=== PATIENT | male | born 1955 | race Caucasian/White ===

== ENCOUNTER 2018-03-14 08:57 | Emergency (ER) | payer BC ==
--- NOTE | 2018-03-14 10:15 | UC ---
Skin Complaint HPI - HPI Summary HPI Summary: patient with CC of tick bite on right side of his neck--he believes the Tick was on for less than 24 hours. small amount of (less than dime size) erythema at bite site--PCP called him in [place] [facility] - History of Current Complaint Chief Complaint: UCSkin Time Seen by Provider: 03/14/18 10:10 Stated Complaint: TICK BITE Hx Obtained From: Patient Onset/Duration: Sudden Onset, Lasting Days Skin Exposure Onset/Duration: Days Ago - 2 Timing: Constant Pain Intensity: 2 Pain Scale Used: 0-10 Numeric Location: Discrete Character: Redness Aggravating Factor(s): Nothing Associated Signs & Symptoms: Positive: Negative Related History: Possible Reaction to: Insect - Allergy/Home Medications Allergies/Adverse Reactions: Allergies Allergy/AdvReac Type Severity Reaction Status Date / Time No Known Allergies Allergy Verified 03/14/18 09:12 Home Medications: Home Medications Brimonidine/Timolol OPTH(NF) [Combigan OPHTH (NF)] 1 03/14/18 [History] Cyclobenzaprine TAB* [Flexeril 10 MG TAB*] 10 mg PO DAILY 03/14/18 [History Confirmed 03/14/18] Lisinopril [Lisinopril] 10 mg PO DAILY 03/14/18 [History Confirmed 03/14/18] Review of Systems Constitutional: Negative Skin: Other - less than dime size erythema at bite size on right side of neck Eyes: Negative ENT: Negative Respiratory: Negative Cardiovascular: Negative Gastrointestinal: Negative Genitourinary: Negative Motor: Negative Neurovascular: Negative Musculoskeletal: Negative Neurological: Negative Psychological: Negative Is Patient Immunocompromised?: No All Other Systems Reviewed And Are Negative: Yes PMH/Surg Hx/FS Hx/Imm Hx Previously Healthy: No Cardiovascular History: Hypertension - Surgical History Surgical History: Yes Surgery Procedure, Year, and Place: kidney left removed and spleen - Family History Known Family History: Positive: None - Social History Occupation: Employed Full-time Lives: With Family Alcohol Use: Daily Substance Use Type: None Smoking Status (MU): Never Smoked Tobacco Physical Exam Triage Information Reviewed: Yes Appearance: Well-Appearing, No Pain Distress, Well-Nourished Vital Signs: Initial Vital Signs Temp 97.8 F 03/14/18 09:06 Pulse 78 03/14/18 09:06 Resp 18 03/14/18 09:06 BP 136/84 03/14/18 09:06 Pulse Ox 100 03/14/18 09:06 Vital Signs Reviewed: Yes Eye Exam: Normal Eyes: Positive: Conjunctiva Clear ENT Exam: Normal ENT: Positive: Normal ENT inspection, Hearing grossly normal, Pharynx normal. Negative: Nasal congestion, Trismus, Muffled voice, Hoarse voice Dental Exam: Normal Neck exam: Normal Neck: Positive: Supple, Nontender Respiratory Exam: Normal Respiratory: Positive: Chest non-tender, No respiratory distress, No accessory muscle use Cardiovascular Exam: Normal Cardiovascular: Positive: RRR, Pulses Normal, Brisk Capillary Refill Musculoskeletal Exam: Normal Musculoskeletal: Positive: Strength Intact, ROM Intact, No Edema Neurological Exam: Normal Neurological: Positive: Alert, Muscle Tone Normal Psychological Exam: Normal Skin Exam: Other Skin: Positive: Other - less than dime size erythema on right side of neck at site of tick bite Course/Dx - Course Course Of Treatment: soap and water wash, tick and Lyme education provided to patient patient is planning to take Doxycycline RX by PCP - Diagnoses Provider Diagnoses: Tick bite right side of neck Discharge - Sign-Out/Discharge Documenting (check all that apply): Discharge/Admit/Transfer - Discharge Plan Condition: Stable Disposition: HOME Patient Education Materials: Tick Bite (ED) Referrals: Catalino Lorenz MD [Primary Care Provider] - If Needed - Billing Disposition and Condition Condition: STABLE Disposition: Home
== END 2018-03-14 10:20 | disposition home or self-care (01) ==
LOC: UCEAST 08:57
DX: S10.96XA Insect bite of unspecified part of neck, initial encounter (principal); W57.XXXA Bitten or stung by nonvenomous insect and other nonvenomous arthropods, initial encounter; Y93.9 Activity, unspecified; Y92.9 Unspecified place or not applicable; I10 Essential (primary) hypertension; Z90.5 Acquired absence of kidney; Z90.81 Acquired absence of spleen
CPT/HCPCS: 99201; G0463

== ENCOUNTER 2018-07-03 08:15 | Emergency (ER) | payer BC ==
[2018-07-03 08:23] VITALS: BP 146/99
--- NOTE | 2018-07-03 08:34 | UC ---
Eye Complaint HPI - HPI Summary HPI Summary: This patient is a 62 year old M presenting to [facility] with a chief complaint of a stye in the L upper eye lid since 2 weeks ago. The CC is described as erythematous. The patient rates the pain 4/10 in severity. Symptoms aggravated by nothing. Symptoms alleviated by nothing (uses a warm compress to no relief). The patient does not report any other sx. - History of Current Complaint Chief Complaint: UCEye Stated Complaint: EYE COMPLAINT Time Seen by Provider: 07/03/18 08:26 Hx Obtained From: Patient Onset/Duration: Sudden Onset, Lasting Weeks - 2 weeks ago, Still Present Timing: Weeks - 2 weeks ago Severity Initially: Moderate Severity Currently: Moderate Pain Intensity: 4 Pain Scale Used: 0-10 Numeric Location of Injury: Eye Lid (upper) - stye in L upper eyelid Aggravating Factor(s): Nothing Alleviating Factor(s): Nothing - uses a warm compress to no relief - Allergies/Home Medications Allergies/Adverse Reactions: Allergies Allergy/AdvReac Type Severity Reaction Status Date / Time No Known Allergies Allergy Verified 03/14/18 09:12 PMH/Surg Hx/FS Hx/Imm Hx Cardiovascular History: Hypertension Respiratory History: Asthma - Surgical History Surgical History: Yes Surgery Procedure, Year, and Place: kidney left removed and spleen - Family History Known Family History: Negative: Cardiac Disease - Social History Alcohol Use: Daily Substance Use Type: None Smoking Status (MU): Never Smoked Tobacco Review of Systems Constitutional: Other - denies fever Eyes: Other - stye in L upper eyelid All Other Systems Reviewed And Are Negative: Yes Physical Exam - Summary Physical Exam Summary: General: well-appearing, no pain distress Skin: warm, color reflects adequate perfusion, dry Head: normal Eyes: EOMI, ARMIN. L upper eye lid on medial aspect is erythematous and has swelling about 4 mm in diameter. ENT: normal Neck: supple, nontender Respiratory: CTA, breath sounds present Cardiovascular: RRR Abdomen: soft, nontender Bowel: present Musculoskeletal: normal, strength/ROM intact Neurological: sensory/motor intact, A&O x3 Psychological: affect/mood appropriate Triage Information Reviewed: Yes Vital Signs: Initial Vital Signs Temp 98 F 07/03/18 08:19 Pulse 108 07/03/18 08:19 Resp 18 07/03/18 08:19 BP 146/99 07/03/18 08:19 Pulse Ox 98 07/03/18 08:19 Vital Signs Reviewed: Yes Eye Complaint Course/Dx - Course Course Of Treatment: Medications reviewed. BP noted and advised to follow up with PCP. - Differential Dx/Diagnosis Provider Diagnoses: LEFT UPPER EYELID STYE. HTN Discharge - Sign-Out/Discharge Documenting (check all that apply): Patient Departure - discharge All imaging exams completed and their final reports reviewed: No Studies - Discharge Plan Condition: Stable Disposition: HOME Prescriptions: Amoxicillin/Clavulanate TAB* [Augmentin TAB 875*] 875 mg PO BID #20 tab Tobramycin 0.3% OPHTH.JO* 1 drop LEFT EYE Q4H #1 btl Patient Education Materials: Stye (ED) Referrals: Catalino Lorenz MD [Primary Care Provider] - Catalino Gutiérrez MD [Medical Doctor] - Additional Instructions: FOLLOW UP WITH OPHTHALMOLOGY IF NOT COMPLETELY IMPROVED. GET RECHECKED FOR ANY WORSENING OF YOUR CONDITION OR QUESTIONS OR CONCERNS. - Billing Disposition and Condition Condition: STABLE Disposition: Home - Attestation Statements Document Initiated by Scribe: Yes Documenting Scribe: Alex Marshall Provider For Whom Scribe is Documenting (Include Credential): Cuate Ch MD Scribe Attestation: I, Alex Marshall, scribed for Cuate Ch MD on 07/03/18 at 1136. Scribe Documentation Reviewed: Yes Provider Attestation: The documentation as recorded by the Alex jaramillo accurately reflects the service I personally performed and the decisions made by me, Cuate Ch MD
== END 2018-07-03 08:41 | disposition home or self-care (01) ==
LOC: UCEAST 08:15
DX: H00.024 Hordeolum internum left upper eyelid (principal); I10 Essential (primary) hypertension
CPT/HCPCS: 99212; G0463